=== PATIENT | female | born 1980 | race American Indian/Alaskan Native ===

== ENCOUNTER 2017-01-07 02:47 | Emergency (ER) | payer MEDICAID ==
[2017-01-07 03:57] LABS: Basophils % (Auto) 0.5 % (0.0-1.8); Eosinophils % (Auto) 2.9 % (0.0-4.3); Hematocrit 28.7 % (30.3-42.9); Hemoglobin 8.8 gm/dl (10.1-14.3); Mean Corpuscular HGB Conc 31 % (30-34); Platelet Count 406 K/mm3 (140-440); Red Blood Count 4.53 M/mm3 (3.65-5.03); Red Cell Distribution Width 18.5 % (13.2-15.2); White Blood Count 12.2 K/mm3 (4.5-11.0)
[2017-01-07 04:17] LABS: Anion Gap 18 mmol/L; BUN/Creatinine Ratio 15.71; Blood Urea Nitrogen 11 mg/dL (7-17); Calcium 8.5 mg/dL (8.4-10.2); Carbon Dioxide 27 mmol/L (22-30); Chloride 94.1 mmol/L (98-107); Glucose 130 mg/dL (65-100); Potassium 3.6 mmol/L (3.6-5.0); Sodium 135 mmol/L (137-145)
[2017-01-07 04:27] LABS: Mean Corpuscular Hemoglobin 19 pg (28-32); Mean Corpuscular Volume 64 fl (79-97)
--- NOTE | 2017-01-07 05:23 | Cat Scan Report ---
FINAL REPORT PROCEDURE: CT HEAD/BRAIN WO CON TECHNIQUE: Computerized tomography of the head was performed without contrast material. HISTORY: HEADACHE COMPARISON: No prior studies are available for comparison. FINDINGS: Skull and scalp: Normal. Paranasal sinuses: Normal. Ventricles and subarachnoid spaces: Normal. Cerebrum: No evidence of hemorrhage, acute infarction or mass . Cerebellum and brainstem: No evidence of hemorrhage, acute infarction or mass. Vasculature: Normal. Comments: None. IMPRESSION: There is no evidence of an acute intracranial process
[2017-01-07] MEDS ORDERED: TYLENOL PO ONE (05:58)
[2017-01-07] MEDS ORDERED: TYLENOL ONE (05:58)
[2017-01-07] MEDS ORDERED: FIORICET PO ONE (10:50)
[2017-01-07] MEDS ORDERED: ZOFRAN IM ONE (10:50)
[2017-01-07] MEDS ORDERED: MORPHINE IM ONE (10:50)
--- NOTE | 2017-01-07 10:55 | Emergency Department Report ---
HPI - General Chief Complaint: Headache Time Seen by Provider: 01/07/17 10:30 - HPI HPI: Room 6 The patient is a 36-year-old female presenting with a chief complaint of headache. Patient states for 5 days ago she began "feeling bad at work" which includes nausea and vomiting. Patient states she went to an urgent care facility and was diagnosed with UTI and a "stomach large." Patient states she was given medications including antibiotics but cannot recall the names. The patient states last night she developed headache dizziness and blurred vision which was intermittent. Gives her pain a score of 10/10. Location: [see above] Duration: [see above] Quality: Headache Severity: 10/10 Modifying factors: [see above] Context: [see above] Mode of transportation: [not driving] ED Past Medical Hx - Past Medical History Hx Asthma: Yes - Surgical History Past Surgical History?: Yes Additional Surgical History: csection tubal ligation - Family History Family history: no significant - Social History Smoking Status: Never Smoker Substance Use Type: None - Medications Home Medications: Home Medications Medication Instructions Recorded Confirmed Last Taken Type Ibuprofen [Motrin] 800 mg PO Q8H PRN #14 tablet 09/14/13 Unknown Rx Azithromycin [Zithromax TAB] 500 mg PO QDAY #3 tablet 05/05/14 Unknown Rx Benzonatate [Tessalon Perles] 100 mg PO Q8HR #30 capsule 05/05/14 Unknown Rx Ondansetron [Zofran Odt] 4 mg PO Q6H #10 tab.rapdis 05/05/14 Unknown Rx Prednisone [Prednisone 10 mg 10 mg PO .TAPER #1 tab.ds.pk 05/05/14 Unknown Rx (6-Day Pack, 21 Tabs)] Promethazine /Codeine 5 ml PO Q6H PRN #120 ml 05/05/14 Unknown Rx [Phenergan/Codeine 6.25-10 mg/5 ml] HYDROcodone/APAP 5-325 [[place] 1 each PO Q6HR PRN #20 tablet 08/19/15 Unknown Rx 5/325] Ibuprofen [Motrin] 800 mg PO Q8HR PRN #30 tablet 08/19/15 Unknown Rx Promethazine [Phenergan TAB] 25 mg PO Q6HR PRN #20 tab 01/07/17 Unknown Rx Promethazine [Phenergan] 25 mg [place] Q6HR PRN #5 supp.rect 01/07/17 Unknown Rx ED Review of Systems ROS: Stated complaint: HEADACHES Other details as noted in HPI Comment: All other systems reviewed and negative Constitutional: denies: chills Eyes: denies: eye pain, eye discharge, vision change ENT: denies: ear pain, throat pain Respiratory: denies: cough, shortness of breath, wheezing Cardiovascular: denies: chest pain, palpitations Endocrine: no symptoms reported Gastrointestinal: nausea, vomiting Genitourinary: denies: urgency, dysuria, discharge Musculoskeletal: denies: back pain, joint swelling, arthralgia Skin: denies: rash, lesions Neurological: headache Psychiatric: denies: anxiety, depression Hematological/Lymphatic: denies: easy bleeding, easy bruising Physical Exam - Physical Exam Vital Signs: Vital Signs 01/07/17 01/07/17 01/07/17 03:22 05:53 09:37 Temperature 98.7 F 98.5 F 98 F Pulse Rate 88 82 70 Respiratory 18 18 18 Rate Blood Pressure 158/101 134/93 Blood Pressure 134/75 [Left] O2 Sat by Pulse 99 100 100 Oximetry Physical Exam: GENERAL: The patient is well-developed well-nourished female lying on stretcher not appearing to be in acute distress. [] HEENT: Normocephalic. Atraumatic. Extraocular motions are intact. Patient has moist mucous membranes. NECK: Supple. No meningitic signs are noted. No nuchal rigidity CHEST/LUNGS: Clear to auscultation. There is no respiratory distress noted. HEART/CARDIOVASCULAR: Regular. There is no tachycardia. There is no gallop rub or murmur. ABDOMEN: Abdomen is soft, nontender. Patient has normal bowel sounds. There is no abdominal distention. SKIN: There is no rash. There is no edema. There is no diaphoresis. NEURO: The patient is awake, alert, and oriented. The patient is cooperative. The patient has no focal neurologic deficits. The patient has normal speech. Cranial nerves II through XII grossly intact, no drift MUSCULOSKELETAL: T There is no evidence of acute injury. ED Course Vital Signs 01/07/17 01/07/17 01/07/17 03:22 05:53 09:37 Temperature 98.7 F 98.5 F 98 F Pulse Rate 88 82 70 Respiratory 18 18 18 Rate Blood Pressure 158/101 134/93 Blood Pressure 134/75 [Left] O2 Sat by Pulse 99 100 100 Oximetry ED Medical Decision Making - Lab Data Result diagrams: 01/07/17 03:43 01/07/17 03:43 Laboratory Tests 01/07/17 01/07/17 01/07/17 03:43 03:43 03:43 WBC 12.2 H RBC 4.53 Hgb 8.8 L Hct 28.7 L MCV 64 L MCH 19 L MCHC 31 RDW 18.5 H Plt Count 406 Lymph % (Auto) 30.7 [place] % (Auto) 6.7 Eos % (Auto) 2.9 Baso % (Auto) 0.5 Lymph # 3.8 [place] # 0.8 Eos # 0.4 Baso # 0.1 Seg Neutrophils % 59.2 Seg Neutrophils # 7.2 Sodium 135 L Potassium 3.6 Chloride 94.1 L Carbon Dioxide 27 Anion Gap 18 BUN 11 Creatinine 0.7 Estimated GFR > 60 BUN/Creatinine Ratio 15.71 Glucose 130 H Calcium 8.5 HCG, Qual Negative Urine Color Urine Turbidity Urine pH Ur Specific Sandy Urine Protein Urine Glucose (UA) Urine Ketones Urine Blood Urine Nitrite Urine Bilirubin Urine Urobilinogen Ur Leukocyte Esterase Urine WBC (Auto) Urine RBC (Auto) U Epithel Cells (Auto) Urine Bacteria (Auto) 01/07/17 11:21 WBC RBC Hgb Hct MCV MCH MCHC RDW Plt Count Lymph % (Auto) [place] % (Auto) Eos % (Auto) Baso % (Auto) Lymph # [place] # Eos # Baso # Seg Neutrophils % Seg Neutrophils # Sodium Potassium Chloride Carbon Dioxide Anion Gap BUN Creatinine Estimated GFR BUN/Creatinine Ratio Glucose Calcium HCG, Qual Urine Color Straw Urine Turbidity Cloudy Urine pH 6.0 Ur Specific Sandy 1.004 Urine Protein <15 mg/dl Urine Glucose (UA) Neg Urine Ketones Neg Urine Blood Sm Urine Nitrite Neg Urine Bilirubin Neg Urine Urobilinogen < 2.0 Ur Leukocyte Esterase Lg Urine WBC (Auto) 24.0 H Urine RBC (Auto) 23.0 U Epithel Cells (Auto) 11.0 Urine Bacteria (Auto) 1+ - Radiology Data Radiology results: report reviewed (CT head), image reviewed (CT head) CT head (read by radiologist)-there is no evidence of an acute intracranial process - Medical Decision Making Patient is in the middle of taking a course of ciprofloxacin patient advised to complete her course of antibiotics - Differential Diagnosis UTI, gastroenteritis, headache, migraine, intracranial mass Critical care attestation.: If time is entered above; I have spent that time in minutes in the direct care of this critically ill patient, excluding procedure time. ED Disposition Clinical Impression: Headache, UTI (urinary tract infection) Disposition: TO HOME OR SELFCARE Is pt being admited?: No Does the pt Need Aspirin: No Condition: Stable Instructions: Urinary Tract Infection in Women (ED), Acute Headache (ED) Additional Instructions: Return to the emergency department immediately should you develop worsening symptoms, fever, inability to tolerate food or liquid or any other concerns. Prescriptions: Promethazine [Phenergan TAB] 25 mg PO Q6HR PRN #20 tab PRN Reason: Nausea Promethazine [Phenergan] 25 mg [place] Q6HR PRN #5 supp.rect PRN Reason: Vomiting Referrals: ZABRINA ESPINAL MD [Staff Physician] - 3-[address] [facility] [Outside] - 3-5 Days Time of Disposition: 12:31
[2017-01-07 11:55] LABS: Bacteria,Urine 1+ /HPF (Negative); Bilirubin,Urine NEG (Negative); Blood,Urine SM (Negative); Ketones,Urine NEG (Negative); Leukocyte Esterase,Urine LG (Negative); Nitrite,Urine NEG (Negative); Protein,Urine <15 mg/dL mg/dL (Negative); Urobilinogen,Urine < 2.0 mg/dL (<2.0)
[2017-01-07 13:26] VITALS: BP 134/62
== END 2017-01-07 13:10 | disposition home or self-care (01) ==
LOC: ED 02:47
DX: N39.0 Urinary tract infection, site not specified (principal); R51 Headache; J45.909 Unspecified asthma, uncomplicated
CPT/HCPCS: 36415; 70450; 80048; 81001; 84703; 85025; 96372; 99284; J2270; J2405

== ENCOUNTER 2017-01-13 20:53 | Emergency (ER) | payer MEDICAID ==
[2017-01-13] MEDS ORDERED: ZOFRAN IV ONE (21:16)
[2017-01-13] MEDS ORDERED: MORPHINE IV ONE (21:16)
--- NOTE | 2017-01-13 21:25 | Emergency Department Report ---
ED Chest Pain HPI - General Chief Complaint: Chest Pain Stated Complaint: CHEST PAIN Time Seen by Provider: 01/13/17 21:08 Source: patient, EMS - History of Present Illness Initial Comments: 36 years old female coming by ambulance as her main complaint of chest pain, pressure-like left-sided started today while she was working at [employer] [facility] and did not have any similar pain before. Her shortness of breath no nausea no vomiting. Patient did receive 325 mg of aspirin by ambulance and also nitroglycerin. MD Complaint: chest pain -: This afternoon Pain Location: left chest Quality: pressure Other Symptoms: cough. denies: fever Treatments Prior to Arrival: aspirin, nitroglycerin - Related Data Previous Rx's Medication Instructions Recorded Last Taken Type Promethazine /Codeine 5 ml PO Q6H PRN #120 ml 05/05/14 Unknown Rx [Phenergan/Codeine 6.25-10 mg/5 ml] Promethazine [Phenergan TAB] 25 mg PO Q6HR PRN #20 tab 01/07/17 Unknown Rx Promethazine [Phenergan] 25 mg [place] Q6HR PRN #5 supp.rect 01/07/17 Unknown Rx Amoxicillin [Amoxicillin TAB] 875 mg PO BID #14 tablet 01/14/17 Unknown Rx Ketorolac [Toradol] 10 mg PO Q6H PRN #20 tablet 01/14/17 Unknown Rx P-Ephed HCl/Codeine/Guaifen 10 ml PO Q4H PRN #100 ml 01/14/17 Unknown Rx [Cheratussin DAC 30-10-100 mg/5 ml] Allergies Allergy/AdvReac Type Severity Reaction Status Date / Time oatmeal Allergy Hives Uncoded 09/14/13 06:49 Heart Score - HEART Score History: Moderately suspicious EKG: Non-specific Age: < 45 Risk factors: 1-2 risk factors Troponin: < normal limit HEART Score: 3 - Critical Actions Critical Actions: 0-3 pts:0.9-1.7%risk of adverse cardiac event.Candidate for discharge ED Review of Systems ROS: Stated complaint: CHEST PAIN Other details as noted in HPI Comment: All other systems reviewed and negative Constitutional: denies: chills, fever Respiratory: cough. denies: shortness of breath, SOB with exertion Cardiovascular: chest pain. denies: palpitations Gastrointestinal: denies: abdominal pain, nausea, vomiting, diarrhea Skin: denies: rash Neurological: denies: headache, weakness, numbness, paresthesias, confusion ED Past Medical Hx - Past Medical History Hx Asthma: Yes - Surgical History Additional Surgical History: csection tubal ligation - Social History Smoking Status: Never Smoker Substance Use Type: None - Medications Home Medications: Home Medications Medication Instructions Recorded Confirmed Last Taken Type Promethazine /Codeine 5 ml PO Q6H PRN #120 ml 05/05/14 01/13/17 Unknown Rx [Phenergan/Codeine 6.25-10 mg/5 ml] Promethazine [Phenergan TAB] 25 mg PO Q6HR PRN #20 tab 01/07/17 01/13/17 Unknown Rx Promethazine [Phenergan] 25 mg [place] Q6HR PRN #5 supp.rect 01/07/17 01/13/17 Unknown Rx Amoxicillin [Amoxicillin TAB] 875 mg PO BID #14 tablet 01/14/17 Unknown Rx Ketorolac [Toradol] 10 mg PO Q6H PRN #20 tablet 01/14/17 Unknown Rx P-Ephed HCl/Codeine/Guaifen 10 ml PO Q4H PRN #100 ml 01/14/17 Unknown Rx [Cheratussin DAC 30-10-100 mg/5 ml] ED Physical Exam - General Limitations: No Limitations General appearance: alert, in no apparent distress - Head Head exam: Present: atraumatic - Eye Eye exam: Present: normal appearance - ENT ENT exam: Present: normal exam - Neck Neck exam: Present: normal inspection, full ROM. Absent: tenderness, meningismus - Respiratory Respiratory exam: Present: normal lung sounds bilaterally. Absent: respiratory distress, wheezes, rales, rhonchi, stridor, chest wall tenderness, accessory muscle use, decreased breath sounds, prolonged expiratory - Cardiovascular Cardiovascular Exam: Present: regular rate, normal rhythm, normal heart sounds - GI/Abdominal GI/Abdominal exam: Present: soft. Absent: distended, tenderness, guarding - Neurological Exam Neurological exam: Present: alert, oriented X3, CN II-XII intact - Skin Skin exam: Present: warm, intact ED Course Vital Signs 01/13/17 01/13/17 01/13/17 21:15 21:45 23:05 Temperature 98.8 F Pulse Rate 110 H 70 Respiratory 20 16 18 Rate Blood Pressure 137/79 Blood Pressure 135/74 [Left] O2 Sat by Pulse 97 100 99 Oximetry - Reevaluation(s) Reevaluation #1: 01/14/17 00:47 Patient stated that she is feeling much better just then is gone. CTA test came back negative no PE no pneumonia. Chest and is very atypical I believe this is bronchitis given the cough and the character of the pain. We will discharge with antibiotic and pain medicine to follow-up with her primary care physician. ED Medical Decision Making - Lab Data Result diagrams: 01/13/17 21:22 01/13/17 21:22 Critical care attestation.: If time is entered above; I have spent that time in minutes in the direct care of this critically ill patient, excluding procedure time. ED Disposition Clinical Impression: Chest pain, Acute bronchitis Disposition: DC-01 TO HOME OR SELFCARE Is pt being admited?: No Condition: Stable Instructions: Chest Pain (ED), Acute Bronchitis (ED) Referrals: PRIMARY CARE, [Primary Care Provider] - 3-5 Days
[2017-01-13 21:54] LABS: Basophils % (Auto) 0.2 % (0.0-1.8); Eosinophils % (Auto) 1.2 % (0.0-4.3); Hematocrit 26.9 % (30.3-42.9); Hemoglobin 8.1 gm/dl (10.1-14.3); Mean Corpuscular HGB Conc 30 % (30-34); Platelet Count 335 K/mm3 (140-440); Red Blood Count 4.14 M/mm3 (3.65-5.03); Red Cell Distribution Width 19.4 % (13.2-15.2); White Blood Count 11.8 K/mm3 (4.5-11.0)
[2017-01-13 21:59] LABS: Mean Corpuscular Hemoglobin 20 pg (28-32); Mean Corpuscular Volume 65 fl (79-97)
[2017-01-13 22:07] LABS: Alanine Aminotransferase 13 units/L (7-56); Albumin 3.4 g/dL (3.9-5); Alkaline Phosphatase 87 units/L (35-129); Anion Gap 18 mmol/L; BUN/Creatinine Ratio 7.14; Blood Urea Nitrogen 5 mg/dL (7-17); Carbon Dioxide 22 mmol/L (22-30); Chloride 100.9 mmol/L (98-107); Glucose 96 mg/dL (65-100); Lipase 22 units/L (13-60); Potassium 3.8 mmol/L (3.6-5.0); Sodium 137 mmol/L (137-145); Total Protein 6.8 g/dL (6.3-8.2)
[2017-01-13 23:09] VITALS: BP 135/74
[2017-01-13] MEDS ORDERED: NACL ONE (23:16)
--- NOTE | 2017-01-13 23:57 | Cat Scan Report ---
FINAL REPORT PROCEDURE: CT ANGIO CHEST TECHNIQUE: Computerized tomographic angiography of the chest was performed after the IV injection of iodinated nonionic contrast including image processing. The image data was postprocessed using 2-dimensional multiplanar reformatted (MPR) and 3-dimensional (MIP and/or volume rendered) techniques. HISTORY: CHEST PAIN WITH SYNCOPE COMPARISON: No prior studies are available for comparison. FINDINGS: Heart and pericardium: Normal. Thoracic aorta: Normal. Pulmonary vasculature: Normal. Lymph nodes: No enlarged thoracic lymph nodes. Lungs: Normal. Pleural space: No effusion, thickening, or pneumothorax. Musculoskeletal structures: No significant abnormality. Upper abdominal structures: No significant abnormality. IMPRESSION: Normal Examination
--- NOTE | 2017-01-14 09:40 | XRay Report ---
AP CHEST: HISTORY: chest pain AP view of the chest demonstrates a normal mediastinal and cardiac contour with clear lungs and normal bony and soft tissue structures. IMPRESSION: No acute cardiopulmonary process appreciated.
== END 2017-01-14 01:10 | disposition home or self-care (01) ==
LOC: ED 20:53
DX: J20.9 Acute bronchitis, unspecified (principal); R07.89 Other chest pain; J45.909 Unspecified asthma, uncomplicated; Z91.018 Allergy to other foods
CPT/HCPCS: 36415; 71010; 71275; 80053; 83690; 84484; 84703; 85025; 85379; 93005; 93010; 96374; 96375; 99285; J2270; J2405; Q9967

== ENCOUNTER 2017-02-17 00:13 | Emergency (ER) | payer MEDICAID ==
[2017-02-17] MEDS ORDERED: TORADOL IM ONE (02:52)
--- NOTE | 2017-02-17 02:57 | Emergency Department Report ---
ED Lower Extremity HPI - General Chief Complaint: Extremity Problem,Nontraumatic Stated Complaint: LT KNEE PAIN Time Seen by Provider: 02/17/17 02:50 Source: patient Mode of arrival: Ambulatory Limitations: No Limitations - History of Present Illness Initial Comments: Pt is a 37 y/o aaf with hx of Asthma , HTN, Obesity, and chronic Left knee pain s/p twisting injury 2 years ago pt endorse pain flares 3-4 times per year, pt is described as 5/10 aching to anterior medial left knee radiating to left tibia pt denies new fall injury or trauma. pt states subjective swelling, rom remains intact pt remains ambulatory to baseline, pain is exacerbated by prolonged standing pain is relieved by rest and elevation, pt has not seen ortho for follow up over the past 2 years. MD Complaint: knee injury Onset/Timin -: year(s) Injury: Knee: Left (anterior medial knee ) Place: street/outdoors Severity: moderate Severity scale (0 -10): 5 Improves With: rest Worsens With: weight bearing, movement, palpation Context: other (twisted 2 yrs ago intermittent pain since ) Associated Symptoms: swelling, ambulatory. denies: numbness, tingling - Related Data Previous Rx's Medication Instructions Recorded Last Taken Type Promethazine /Codeine 5 ml PO Q6H PRN #120 ml 05/05/14 Unknown Rx [Phenergan/Codeine 6.25-10 mg/5 ml] Promethazine [Phenergan TAB] 25 mg PO Q6HR PRN #20 tab 01/07/17 Unknown Rx Promethazine [Phenergan] 25 mg [place] Q6HR PRN #5 supp.rect 01/07/17 Unknown Rx Amoxicillin [Amoxicillin TAB] 875 mg PO BID #14 tablet 01/14/17 Unknown Rx Ketorolac [Toradol] 10 mg PO Q6H PRN #20 tablet 01/14/17 Unknown Rx P-Ephed HCl/Codeine/Guaifen 10 ml PO Q4H PRN #100 ml 01/14/17 Unknown Rx [Cheratussin DAC 30-10-100 mg/5 ml] Cyclobenzaprine [Flexeril] 10 mg PO TID PRN #30 tablet 02/17/17 Unknown Rx Diclofenac Sodium [Voltaren] 100 gm TP BID PRN #1 tube 02/17/17 Unknown Rx Naproxen [Naprosyn TAB] 500 mg PO BID PRN #30 tablet 02/17/17 Unknown Rx Allergies Allergy/AdvReac Type Severity Reaction Status Date / Time oatmeal Allergy Hives Uncoded 09/14/13 06:49 ED Review of Systems ROS: Stated complaint: LT KNEE PAIN Other details as noted in HPI Constitutional: denies: chills, fever Eyes: denies: eye pain, eye discharge, vision change ENT: denies: ear pain, throat pain Respiratory: denies: cough, shortness of breath, wheezing Cardiovascular: denies: chest pain, palpitations, dyspnea on exertion, edema, syncope, paroxysmal nocturnal dyspnea Endocrine: no symptoms reported Gastrointestinal: denies: abdominal pain, nausea, diarrhea Genitourinary: denies: urgency, dysuria, discharge Musculoskeletal: arthralgia, myalgia Skin: denies: rash, lesions Neurological: denies: headache, weakness, paresthesias Psychiatric: denies: anxiety, depression Hematological/Lymphatic: denies: easy bleeding, easy bruising ED Past Medical Hx - Past Medical History Previous Medical History?: Yes Hx Hypertension: Yes Hx Asthma: Yes - Surgical History Past Surgical History?: Yes Additional Surgical History: csection tubal ligation - Social History Smoking Status: Never Smoker Substance Use Type: None - Medications Home Medications: Home Medications Medication Instructions Recorded Confirmed Last Taken Type Promethazine /Codeine 5 ml PO Q6H PRN #120 ml 05/05/14 01/13/17 Unknown Rx [Phenergan/Codeine 6.25-10 mg/5 ml] Promethazine [Phenergan TAB] 25 mg PO Q6HR PRN #20 tab 01/07/17 01/13/17 Unknown Rx Promethazine [Phenergan] 25 mg [place] Q6HR PRN #5 supp.rect 01/07/17 01/13/17 Unknown Rx Amoxicillin [Amoxicillin TAB] 875 mg PO BID #14 tablet 01/14/17 Unknown Rx Ketorolac [Toradol] 10 mg PO Q6H PRN #20 tablet 01/14/17 Unknown Rx P-Ephed HCl/Codeine/Guaifen 10 ml PO Q4H PRN #100 ml 01/14/17 Unknown Rx [Cheratussin DAC 30-10-100 mg/5 ml] Cyclobenzaprine [Flexeril] 10 mg PO TID PRN #30 tablet 02/17/17 Unknown Rx Diclofenac Sodium [Voltaren] 100 gm TP BID PRN #1 tube 02/17/17 Unknown Rx Naproxen [Naprosyn TAB] 500 mg PO BID PRN #30 tablet 02/17/17 Unknown Rx ED Physical Exam - General Limitations: No Limitations General appearance: alert, in no apparent distress - Head Head exam: Present: atraumatic, normocephalic - Eye Eye exam: Present: normal appearance, PERRL, EOMI Pupils: Present: normal accommodation - ENT ENT exam: Present: mucous membranes moist - Neck Neck exam: Present: normal inspection, tenderness, full ROM. Absent: lymphadenopathy, thyromegaly - Respiratory Respiratory exam: Present: normal lung sounds bilaterally, chest wall tenderness. Absent: respiratory distress - Cardiovascular Cardiovascular Exam: Present: regular rate, normal rhythm. Absent: systolic murmur, diastolic murmur, rubs, gallop - GI/Abdominal GI/Abdominal exam: Present: soft, normal bowel sounds - Rectal Rectal exam: Present: deferred - Extremities Exam Extremities exam: Present: normal inspection, full ROM, tenderness (left medial anterior knee pain to palpation), normal capillary refill. Absent: pedal edema , joint swelling, calf tenderness - Expanded Lower Extremity Exam Left Hip exam: Present: full ROM. Absent: tenderness Upper Leg exam: Present: normal inspection, full ROM. Absent: tenderness Knee exam: Present: normal inspection, full ROM, tenderness, swelling, pain w/ pronation/supination, full knee extension. Absent: abrasion, laceration, ecchymosis, deformity, crepidus, dislocation, erythema, effusion, posterior draw sign, pain/laxity with valgus, pain/laxity with varus Lower Leg exam: Present: normal inspection, full ROM. Absent: tenderness Ankle exam: Present: normal inspection, full ROM. Absent: tenderness Foot/Toe exam: Present: normal inspection, full ROM. Absent: tenderness Neuro vascular tendon exam: Present: no vascular compromise. Absent: pulse deficit, abnormal cap refill, motor deficit, sensory deficit, tendon deficit, extremity cold to touch, pallor, abnormal 2-point discrimination, decreased fine /light touch, foot drop, peroneal nerve deficit, significant pain with passive ROM of distal joint Gait: Positive: observed and normal - Back Exam Back exam: Present: normal inspection, full ROM. Absent: tenderness, CVA tenderness (R), CVA tenderness (L), rash noted - Neurological Exam Neurological exam: Present: alert, oriented X3, CN II-XII intact, normal gait, reflexes normal - Psychiatric Psychiatric exam: Present: normal affect, normal mood - Skin Skin exam: Present: warm, dry, intact, normal color. Absent: rash ED Course Vital Signs 02/17/17 00:17 Temperature 98.1 F Pulse Rate 87 Respiratory 20 Rate O2 Sat by Pulse 100 Oximetry ED Lower Extremity MDM - Medical Decision Making Pt is a 37 y/o aaf with hx of Asthma , HTN, Obesity, and chronic Left knee pain s/p twisting injury 2 years ago pt endorse pain flares 3-4 times per year, pt is described as 5/10 aching to anterior medial left knee radiating to left tibia pt denies new fall injury or trauma. pt states subjective swelling, rom remains intact pt remains ambulatory to baseline, pain is exacerbated by prolonged standing pain is relieved by rest and elevation, pt has not seen ortho for follow up over the past 2 years. exam: pt appears well nontoxic nad , left knee: no deformity no ecchymosis no erythema no fever no drawer, rom intact full extension, pain to rotation there is no weakness no calf tenderness no given that this is a chronic issue with no change in pain location intensity or location in past 2 yrs will tx with nsaids and muscle relaxant and referral to orthopedics upon appointment pt verbalized agreement and understanding with same. Critical care attestation.: If time is entered above; I have spent that time in minutes in the direct care of this critically ill patient, excluding procedure time. ED Disposition Clinical Impression: Chronic pain of left knee Disposition: DC- TO HOME OR SELFCARE Is pt being admited?: No Does the pt Need Aspirin: No Condition: Good Instructions: Knee Exercises (GEN), Knee Pain (ED) Prescriptions: Cyclobenzaprine [Flexeril] 10 mg PO TID PRN #30 tablet PRN Reason: Muscle Spasm Diclofenac Sodium [Voltaren] 100 gm TP BID PRN #1 tube PRN Reason: Pain Naproxen [Naprosyn TAB] 500 mg PO BID PRN #30 tablet PRN Reason: Pain Referrals: PRIMARY CARE, [Primary Care Provider] - 3-5 Days Forms: Work/School Release Form(ED) Time of Disposition: 03:08
== END 2017-02-17 03:25 | disposition home or self-care (01) ==
LOC: ED 00:13
DX: M25.562 Pain in left knee (principal); G89.29 Other chronic pain; I10 Essential (primary) hypertension; J45.909 Unspecified asthma, uncomplicated
CPT/HCPCS: 96372; 99282; J1885

== ENCOUNTER 2017-08-30 14:58 | Emergency (ER) | payer MEDICAID ==
[2017-08-30 15:17] VITALS: BP 168/99
--- NOTE | 2017-08-30 16:46 | XRay Report ---
FINAL REPORT EXAM: XR KNEE 3V LT HISTORY: left knee pain and swelling TECHNIQUE: AP, oblique, and lateral views of the left knee PRIORS: None. FINDINGS: No acute fracture or dislocation is seen. The soft tissues are unremarkable with no evidence for suprapatellar joint effusion. Joint spaces are maintained and bony mineralization is normal. IMPRESSION: Negative views of the left knee.
--- NOTE | 2017-08-30 19:46 | Emergency Department Report ---
ED Extremity Problem HPI - General Chief complaint: Extremity Injury, Lower Stated complaint: KNEE PAIN Time Seen by Provider: 08/30/17 19:37 Source: patient Mode of arrival: Ambulatory Limitations: No Limitations - History of Present Illness Initial comments: 37-year-old obese female comes in complaining of history of left knee pain. Patient reports she had a injury 2 years ago and in the last 2 days her pain is gotten worse. Patient reports his taken no medication she says is worse when she bears weight bear. Patient has taken no pain medication at this time. Patient denies any recent trauma no fever no chills no swelling. She has no past medical history currently takes no medication and has no known drug allergies. MD Complaint: extremity pain -: days(s) (2 worst in last 2 days), year(s) (2) Location: left History of Same: Yes Radiation: proximal, distal Severity scale (0 -10): 9 Quality: aching, sharp Consistency: intermittent Improves with: medication, rest Worsens with: weight bearing, walking Associated Symptoms: denies: chest pain, shortness of breath, fever - Related Data Previous Rx's Medication Instructions Recorded Last Taken Type Promethazine /Codeine 5 ml PO Q6H PRN #120 ml 05/05/14 Unknown Rx [Phenergan/Codeine 6.25-10 mg/5 ml] Promethazine [Phenergan TAB] 25 mg PO Q6HR PRN #20 tab 01/07/17 Unknown Rx Promethazine [Phenergan] 25 mg DE Q6HR PRN #5 supp.rect 01/07/17 Unknown Rx Amoxicillin [Amoxicillin TAB] 875 mg PO BID #14 tablet 01/14/17 Unknown Rx Ketorolac [Toradol] 10 mg PO Q6H PRN #20 tablet 01/14/17 Unknown Rx Pseudoephed/Codeine/Guaifen 10 ml PO Q4H PRN #100 ml 01/14/17 Unknown Rx [Cheratussin DAC 30-10-100 mg/5 ml] Cyclobenzaprine [Flexeril] 10 mg PO TID PRN #30 tablet 02/17/17 Unknown Rx Diclofenac Sodium [Voltaren] 100 gm TP BID PRN #1 tube 02/17/17 Unknown Rx Naproxen [Naprosyn TAB] 500 mg PO BID PRN #30 tablet 08/30/17 Unknown Rx traMADol [Ultram 50 MG tab] 50 mg PO Q6HR PRN #12 tablet 08/30/17 Unknown Rx Allergies Allergy/AdvReac Type Severity Reaction Status Date / Time oatmeal Allergy Hives Uncoded 09/14/13 06:49 ED Review of Systems ROS: Stated complaint: KNEE PAIN Other details as noted in HPI Constitutional: denies: chills, fever Eyes: denies: eye pain, eye discharge, vision change ENT: denies: ear pain, throat pain Respiratory: denies: cough, shortness of breath, wheezing Cardiovascular: denies: chest pain, palpitations Endocrine: no symptoms reported Gastrointestinal: denies: abdominal pain, nausea, diarrhea Genitourinary: denies: urgency, dysuria, discharge Musculoskeletal: arthralgia (left knee). denies: joint swelling Skin: denies: rash, lesions Neurological: denies: headache, weakness, paresthesias Psychiatric: denies: anxiety, depression Hematological/Lymphatic: denies: easy bleeding, easy bruising ED Past Medical Hx - Past Medical History Previous Medical History?: Yes Hx Hypertension: Yes Hx Asthma: Yes Additional medical history: left knee injury - Surgical History Past Surgical History?: Yes Additional Surgical History: csection tubal ligation - Social History Smoking Status: Never Smoker Substance Use Type: Non Opiate Pain - Medications Home Medications: Home Medications Medication Instructions Recorded Confirmed Last Taken Type Promethazine /Codeine 5 ml PO Q6H PRN #120 ml 05/05/14 01/13/17 Unknown Rx [Phenergan/Codeine 6.25-10 mg/5 ml] Promethazine [Phenergan TAB] 25 mg PO Q6HR PRN #20 tab 01/07/17 01/13/17 Unknown Rx Promethazine [Phenergan] 25 mg DE Q6HR PRN #5 supp.rect 01/07/17 01/13/17 Unknown Rx Amoxicillin [Amoxicillin TAB] 875 mg PO BID #14 tablet 01/14/17 Unknown Rx Ketorolac [Toradol] 10 mg PO Q6H PRN #20 tablet 01/14/17 Unknown Rx Pseudoephed/Codeine/Guaifen 10 ml PO Q4H PRN #100 ml 01/14/17 Unknown Rx [Cheratussin DAC 30-10-100 mg/5 ml] Cyclobenzaprine [Flexeril] 10 mg PO TID PRN #30 tablet 02/17/17 Unknown Rx Diclofenac Sodium [Voltaren] 100 gm TP BID PRN #1 tube 02/17/17 Unknown Rx Naproxen [Naprosyn TAB] 500 mg PO BID PRN #30 tablet 08/30/17 Unknown Rx traMADol [Ultram 50 MG tab] 50 mg PO Q6HR PRN #12 tablet 08/30/17 Unknown Rx ED Physical Exam - General Limitations: No Limitations General appearance: alert, in no apparent distress - Head Head exam: Present: atraumatic, normocephalic - Eye Eye exam: Present: normal appearance - ENT ENT exam: Present: mucous membranes moist - Neck Neck exam: Present: normal inspection - Respiratory Respiratory exam: Present: normal lung sounds bilaterally. Absent: respiratory distress - Cardiovascular Cardiovascular Exam: Present: regular rate, normal rhythm. Absent: systolic murmur, diastolic murmur, rubs, gallop - Extremities Exam Extremities exam: Present: normal inspection, full ROM, tenderness. Absent: pedal edema - Back Exam Back exam: Present: normal inspection - Neurological Exam Neurological exam: Present: alert, oriented X3 - Psychiatric Psychiatric exam: Present: normal affect, normal mood - Skin Skin exam: Present: warm, dry, intact, normal color. Absent: rash ED Course Vital Signs 08/30/17 15:13 Temperature 98.2 F Pulse Rate 92 H Respiratory 18 Rate Blood Pressure 168/99 O2 Sat by Pulse 99 Oximetry ED Medical Decision Making - Medical Decision Making MPRESSION: Negative views of the left knee. Transcribed By: [facility] Dictated By: SHERI POE MD Electronically Authenticated By: SHERI POE MD Signed Date/Time: 08/30/17 1641 Critical care attestation.: If time is entered above; I have spent that time in minutes in the direct care of this critically ill patient, excluding procedure time. ED Disposition Clinical Impression: Chronic pain of left knee, Obesity (BMI 30-39.9) Disposition: DC-01 TO HOME OR SELFCARE Is pt being admited?: No Does the pt Need Aspirin: No Condition: Stable Additional Instructions: Take medication as prescribed. If symptoms persist or gets worse please follow up with her primary care provider or orthopedist. Prescriptions: Naproxen [Naprosyn TAB] 500 mg PO BID PRN #30 tablet PRN Reason: Pain traMADol [Ultram 50 MG tab] 50 mg PO Q6HR PRN #12 tablet PRN Reason: Pain Referrals: NEHEMIAS WOLF MD [Primary Care Provider] - 3-5 Days MORIAH MCKEON MD [Staff Physician] - 3-5 Days Forms: Work/School Release Form(ED)
[2017-08-30] MEDS ORDERED: TORADOL IM ONE (19:47)
== END 2017-08-30 20:00 | disposition home or self-care (01) ==
LOC: ED 14:58
DX: M25.562 Pain in left knee (principal); E66.9 Obesity, unspecified; I10 Essential (primary) hypertension; Z68.30 Body mass index [BMI] 30.0-30.9, adult; Z91.018 Allergy to other foods
CPT/HCPCS: 73562; 96372; 99283; J1885

== ENCOUNTER 2017-11-28 03:26 | Emergency (ER) | payer MEDICAID ==
[2017-11-28 03:40] VITALS: BP 143/85
[2017-11-28] MEDS ORDERED: MOTRIN PO ONE (06:04)
--- NOTE | 2017-11-28 06:09 | Emergency Department Report ---
- General Chief Complaint: Upper Respiratory Infection Stated Complaint: BODY PAIN Time Seen by Provider: 11/28/17 06:03 Source: patient Mode of arrival: Ambulatory Limitations: No Limitations - History of Present Illness Initial Comments: 37-year-old -[place] female comes in complaining of body aches, reports back in all lower chest worse with cough. Patient reports that she had a Stewart earlier today. Patient reports that she took Excedrin about midnight but no relief of her body aches. Patient does report of a nonproductive cough and sore throat. Patient admits to headache and sick contact. She denies any nausea vomiting or diarrhea or abdominal pain. MD Complaint: fever, cough, sore throat -: days(s) (1) Severity scale (0 -10): 10 Quality: sharp Consistency: intermittent Improves With: nothing Worsens With: other Context: sick contacts Associated Symptoms: fever (subjective), myalgias, headache, sore throat, chest pain (worst with cough). denies: nausea, vomiting, diarrhea Treatments Prior to Arrival: Acetaminophen (Excerdrin) - Related Data Previous Rx's Medication Instructions Recorded Last Taken Type Promethazine /Codeine 5 ml PO Q6H PRN #120 ml 05/05/14 Unknown Rx [Phenergan/Codeine 6.25-10 mg/5 ml] Promethazine [Phenergan TAB] 25 mg PO Q6HR PRN #20 tab 01/07/17 Unknown Rx Promethazine [Phenergan] 25 mg [place] Q6HR PRN #5 supp.rect 01/07/17 Unknown Rx Amoxicillin [Amoxicillin TAB] 875 mg PO BID #14 tablet 01/14/17 Unknown Rx Ketorolac [Toradol] 10 mg PO Q6H PRN #20 tablet 01/14/17 Unknown Rx Pseudoephed/Codeine/Guaifen 10 ml PO Q4H PRN #100 ml 01/14/17 Unknown Rx [Cheratussin DAC 30-10-100 mg/5 ml] Cyclobenzaprine [Flexeril] 10 mg PO TID PRN #30 tablet 02/17/17 Unknown Rx Diclofenac Sodium [Voltaren] 100 gm TP BID PRN #1 tube 02/17/17 Unknown Rx traMADol [Ultram 50 MG tab] 50 mg PO Q6HR PRN #12 tablet 08/30/17 Unknown Rx Benzonatate [Tessalon Perles] 100 mg PO Q8HR #21 capsule 11/28/17 Unknown Rx Naproxen [Naprosyn TAB] 500 mg PO BID PRN #30 tablet 11/28/17 Unknown Rx Allergies Allergy/AdvReac Type Severity Reaction Status Date / Time oatmeal Allergy Hives Uncoded 09/14/13 06:49 ED Review of Systems ROS: Stated complaint: BODY PAIN Other details as noted in HPI Constitutional: fever. denies: chills ENT: throat pain Respiratory: cough Cardiovascular: chest pain (with cough) Gastrointestinal: denies: abdominal pain, nausea, diarrhea Genitourinary: denies: urgency, dysuria, discharge Musculoskeletal: back pain (with cough) Skin: denies: rash, lesions Neurological: headache Psychiatric: denies: anxiety, depression Hematological/Lymphatic: denies: easy bleeding, easy bruising ED Past Medical Hx - Past Medical History Previous Medical History?: Yes Hx Hypertension: Yes Hx Asthma: Yes (bronchitis) Additional medical history: left knee injury - Surgical History Past Surgical History?: Yes Additional Surgical History: csection x3. tubal ligation - Social History Smoking Status: Never Smoker Substance Use Type: Alcohol - Medications Home Medications: Home Medications Medication Instructions Recorded Confirmed Last Taken Type Promethazine /Codeine 5 ml PO Q6H PRN #120 ml 05/05/14 01/13/17 Unknown Rx [Phenergan/Codeine 6.25-10 mg/5 ml] Promethazine [Phenergan TAB] 25 mg PO Q6HR PRN #20 tab 01/07/17 01/13/17 Unknown Rx Promethazine [Phenergan] 25 mg LA Q6HR PRN #5 supp.rect 01/07/17 01/13/17 Unknown Rx Amoxicillin [Amoxicillin TAB] 875 mg PO BID #14 tablet 01/14/17 Unknown Rx Ketorolac [Toradol] 10 mg PO Q6H PRN #20 tablet 01/14/17 Unknown Rx Pseudoephed/Codeine/Guaifen 10 ml PO Q4H PRN #100 ml 01/14/17 Unknown Rx [Cheratussin DAC 30-10-100 mg/5 ml] Cyclobenzaprine [Flexeril] 10 mg PO TID PRN #30 tablet 02/17/17 Unknown Rx Diclofenac Sodium [Voltaren] 100 gm TP BID PRN #1 tube 02/17/17 Unknown Rx traMADol [Ultram 50 MG tab] 50 mg PO Q6HR PRN #12 tablet 08/30/17 Unknown Rx Benzonatate [Tessalon Perles] 100 mg PO Q8HR #21 capsule 11/28/17 Unknown Rx Naproxen [Naprosyn TAB] 500 mg PO BID PRN #30 tablet 11/28/17 Unknown Rx ED Physical Exam - General Limitations: No Limitations - ENT ENT exam: Present: mucous membranes moist, TM's normal bilaterally - Expanded ENT Exam Expanded Mouth exam: Absent: drooling, trismus, muffled voice Throat exam: Positive: tonsillomegaly. Negative: tonsillar erythema, tonsillar exudate - Neck Neck exam: Present: full ROM. Absent: lymphadenopathy - Respiratory Respiratory exam: Present: normal lung sounds bilaterally. Absent: respiratory distress - Cardiovascular Cardiovascular Exam: Present: tachycardia - Neurological Exam Neurological exam: Present: alert, oriented X3, normal gait - Psychiatric Psychiatric exam: Present: normal affect, normal mood - Skin Skin exam: Present: warm, dry, intact, normal color. Absent: rash ED Course Vital Signs 11/28/17 03:33 Temperature 99.0 F Pulse Rate 93 H Respiratory 18 Rate Blood Pressure 143/85 O2 Sat by Pulse 96 Oximetry ED Medical Decision Making - Radiology Data Radiology results: report reviewed, image reviewed FINAL REPORT PROCEDURE: XR CHEST ROUTINE 2V TECHNIQUE: PA and lateral chest radiographs were obtained. CPT 42340 HISTORY: cough with fever cp with cough COMPARISON: No prior studies are available for comparison. FINDINGS: Heart: Normal. Mediastinum/Vessels: Normal. Lungs/Pleural space: Normal. Bony thorax: No acute osseous abnormality. Other: IMPRESSION: Normal examination. Transcribed By: [facility] Dictated By: KAYLEE SUTHERLAND MD Electronically Authenticated By: KAYLEE SUTHERLAND MD Signed Date/Time: 11/28/17 0659 - Medical Decision Making Patient has been evaluated by this provider in fast track. HCG and urinalysis ordered as well as chest x-ray ibuprofen 800 mg. Critical care attestation.: If time is entered above; I have spent that time in minutes in the direct care of this critically ill patient, excluding procedure time. ED Disposition Clinical Impression: Cough in adult Disposition: DC-01 TO HOME OR SELFCARE Is pt being admited?: No Does the pt Need Aspirin: No Condition: Stable Instructions: Cold Symptoms (ED) Additional Instructions: Please take medication as prescribed. Follow up with your Primary Care provider if symptoms persist or gets worst. Prescriptions: Benzonatate [Tessalon Perles] 100 mg PO Q8HR #21 capsule Naproxen [Naprosyn TAB] 500 mg PO BID PRN #30 tablet PRN Reason: Pain Referrals: PRIMARY CARE, [Primary Care Provider] - 3-5 Days [facility] [Provider Group] - 3-5 Days Forms: Work/School Release Form(ED)
--- NOTE | 2017-11-28 07:04 | XRay Report ---
FINAL REPORT PROCEDURE: XR CHEST ROUTINE 2V TECHNIQUE: PA and lateral chest radiographs were obtained. CPT 04766 HISTORY: cough with fever cp with cough COMPARISON: No prior studies are available for comparison. FINDINGS: Heart: Normal. Mediastinum/Vessels: Normal. Lungs/Pleural space: Normal. Bony thorax: No acute osseous abnormality. Other: IMPRESSION: Normal examination.
[2017-11-28 07:33] LABS: Amorphous Crystals,Urine Few; Bacteria,Urine 1+ /HPF (Negative); Bilirubin,Urine NEG (Negative); Blood,Urine NEG (Negative); Color,Urine Yellow (Yellow); Mucus,Urine 1+ /HPF; Protein,Urine <15 mg/dL mg/dL (Negative); Urobilinogen,Urine < 2.0 mg/dL (<2.0)
[2017-11-28 07:41] LABS: HCG Qualitative,Urine Negative (Negative)
== END 2017-11-28 07:29 | disposition home or self-care (01) ==
LOC: ED 03:26
DX: R05 Cough (principal); I10 Essential (primary) hypertension; J45.909 Unspecified asthma, uncomplicated; Z98.51 Tubal ligation status; Z91.018 Allergy to other foods
CPT/HCPCS: 71046; 81001; 81025

== ENCOUNTER 2018-08-03 23:29 | Emergency (ER) | payer OTHER ==
--- NOTE | 2018-08-04 01:05 | XRay Report ---
PROCEDURE: XR CHEST ROUTINE 2V TECHNIQUE: PA and lateral chest radiographs were obtained. HISTORY: Chest pain COMPARISONS: November 28, 2017. FINDINGS: Heart: The heart is borderline enlarged.. Mediastinum/Vessels: Normal. Lungs/Pleural space: There is suboptimal inspiration. There are no infiltrates, effusions or pneumot horaces.. Bony thorax: No acute osseous abnormality. IMPRESSION: There is no acute cardiopulmonary abnormality. This document is electronically signed by Wander Burns MD., August 04 2018 01:03:12 AM ET
--- NOTE | 2018-08-04 02:20 | Emergency Department Report ---
<JAMEL ORTIZ - Last Filed: 08/04/18 06:20> ED Chest Pain HPI - General Chief Complaint: Dyspnea/Respdistress Stated Complaint: BOLIVAR BODY ACHES Time Seen by Provider: 08/04/18 02:16 Source: patient Mode of arrival: Ambulatory Limitations: No Limitations - History of Present Illness Initial Comments: 38-year-old obese female recently diagnosed with diabetes and hypertension comes in complaining of shortness of breath, chest pain, dizziness and feels like she has to belch. Patient reports that she taken a flu vaccination on 311. Patient is taken nothing for pain. She is followed by [facility] and was recently seen on 07/30/2018 where she was recently diagnosed with these chronic diseases. Patient reports that she was recently started on losartan 50 mg of hydrochlorothiazide 12.5. Patient is not been placed on any hyperglycemic medication. MD Complaint: chest pain -: days(s) (2) Pain Location: substernal Severity scale (0 -10): 9 Quality: tightness, heaviness - Related Data Previous Rx's Medication Instructions Recorded Last Taken Type Famotidine [Pepcid] 40 mg PO DAILY 10 Days #10 tablet 03/06/18 Unknown Rx Ondansetron [Zofran Odt] 4 mg PO Q6H PRN #10 tab.rapdis 03/06/18 Unknown Rx Naproxen [Naprosyn] 500 mg PO BID PRN #20 tablet 08/04/18 Unknown Rx Allergies Allergy/AdvReac Type Severity Reaction Status Date / Time oatmeal Allergy Hives Uncoded 09/14/13 06:49 Heart Score - HEART Score History: Slightly suspicious Age: < 45 Risk factors: 1-2 risk factors Troponin: 1-3x normal limit ED Review of Systems Constitutional: chills, malaise, weakness Respiratory: shortness of breath Cardiovascular: chest pain Neurological: other (dizziness) ED Past Medical Hx - Past Medical History Hx Hypertension: Yes Hx Diabetes: Yes Hx Asthma: Yes (bronchitis) Additional medical history: left knee injury, Obesity, Bronchitis - Surgical History Additional Surgical History: x3. tubal ligation - Social History Smoking Status: Never Smoker Substance Use Type: None - Medications Home Medications: Home Medications Medication Instructions Recorded Confirmed Last Taken Type Famotidine [Pepcid] 40 mg PO DAILY 10 Days #10 tablet 03/06/18 Unknown Rx Ondansetron [Zofran Odt] 4 mg PO Q6H PRN #10 tab.rapdis 03/06/18 Unknown Rx Naproxen [Naprosyn] 500 mg PO BID PRN #20 tablet 08/04/18 Unknown Rx ED Physical Exam - General Limitations: No Limitations General appearance: alert, in no apparent distress, obese - Head Head exam: Present: atraumatic, normocephalic - Eye Eye exam: Present: EOMI - ENT ENT exam: Present: mucous membranes moist - Neck Neck exam: Present: normal inspection, full ROM - Respiratory Respiratory exam: Present: normal lung sounds bilaterally - Cardiovascular Cardiovascular Exam: Present: bradycardia - GI/Abdominal GI/Abdominal exam: Present: soft, tenderness, normal bowel sounds. Absent: distended, guarding, rebound - Extremities Exam Extremities exam: Present: tenderness - Back Exam Back exam: Present: tenderness - Neurological Exam Neurological exam: Present: alert, oriented X3 - Psychiatric Psychiatric exam: Present: normal affect, normal mood - Skin Skin exam: Present: warm, dry, intact, normal color. Absent: rash ED Medical Decision Making - Lab Data Result diagrams: 08/04/18 02:41 08/04/18 02:41 - Radiology Data Radiology results: report reviewed No cardiopulmonary abnormalities on chest x-ray ED Disposition Clinical Impression: Ovarian mass, Generalized body aches, Thrombocytopenia URI (upper respiratory infection) Qualifiers: URI type: unspecified URI Qualified Code(s): J06.9 - Acute upper respiratory infection, unspecified Leukocytosis Qualifiers: Leukocytosis type: unspecified Qualified Code(s): D72.829 - Elevated white blood cell count, unspecified Disposition: DC- TO HOME OR SELFCARE Condition: Stable Instructions: Ovarian Cyst (ED) Additional Instructions: Follow up with your [facility] as soon as possible for cystic mass on ovary. Follow up with primary care in the next 2-3 days to discuss elevated platelets and elevated white count and to evaluate you. Take all your medication you already received from prior doctor. Return to the emergency room for any new or worsening symptoms. Prescriptions: Naproxen [Naprosyn] 500 mg PO BID PRN #20 tablet PRN Reason: Pain, Moderate (4-6) Referrals: GAVIN LIMESTONE SAMIA JASSO MD [Primary Care Provider] - 2-3 Days Forms: Work/School Release Form(ED) Print Language: SINHALA <IAM RUSHING - Last Filed: 08/04/18 19:18> Heart Score - HEART Score History: Slightly suspicious EKG: Non-specific Age: < 45 Risk factors: 1-2 risk factors Troponin: < normal limit HEART Score: 2 ED Review of Systems ROS: Stated complaint: BOLIVAR BODY ACHES Other details as noted in HPI ED Course Vital Signs 08/03/18 08/04/18 08/04/18 23:36 05:56 05:58 Temperature 97.8 F 98.9 F Pulse Rate 89 94 H Respiratory 20 18 18 Rate Blood Pressure 114/64 Blood Pressure 145/86 [Left] O2 Sat by Pulse 98 100 Oximetry 08/04/18 13:22 Temperature 98.1 F Pulse Rate 83 Respiratory 16 Rate Blood Pressure Blood Pressure 107/60 [Left] O2 Sat by Pulse 100 Oximetry ROQUE score - Roque Score Age > 65: (0) No Aspirin use within the Past 7 Days: (0) No 3 or more CAD Risk Factors: (0) No 2 or more Angina events in past 24 hrs: (0) No Known CAD with more than 50% Stenosis: (0) No Elevated Cardiac Markers: (0) No ST Deviation Greater than 0.5mm: (0) No ROQUE Score: 0 ED Medical Decision Making - Lab Data Result diagrams: 08/04/18 02:41 08/04/18 02:41 Laboratory Results - last 24 hr 08/04/18 08/04/18 08/04/18 00:13 02:41 02:41 WBC 19.6 H RBC 4.71 Hgb 9.1 L Hct 29.2 L MCV 62 L MCH 19 L MCHC 31 RDW 19.0 H Plt Count 446 H Lymph # Flow Coordinator Add Manual Diff Complete Total Counted 100 Seg Neuts % (Manual) 66.0 Band Neutrophils % 0 Lymphocytes % (Manual) 28.0 Reactive Lymphs % (Man) 2.0 Monocytes % (Manual) 3.0 Eosinophils % (Manual) 1.0 Basophils % (Manual) 0 Metamyelocytes % 0 Myelocytes % 0 Promyelocytes % 0 Blast Cells % 0 Nucleated RBC % Not Reportable Seg Neutrophils # Man 12.9 H Band Neutrophils # 0.0 Lymphocytes # (Manual) 5.5 H Abs React Lymphs (Man) 0.4 Monocytes # (Manual) 0.6 Eosinophils # (Manual) 0.2 Basophils # (Manual) 0.0 Metamyelocytes # 0.0 Myelocytes # 0.0 Promyelocytes # 0.0 Blast Cells # 0.0 WBC Morphology Not Reportable Hypersegmented Neuts Not Reportable Hyposegmented Neuts Not Reportable Hypogranular Neuts Not Reportable Smudge Cells Not Reportable Toxic Granulation Not Reportable Toxic Vacuolation Not Reportable Dohle Bodies Not Reportable Pelger-Huet Anomaly Not Reportable Markus Rods Not Reportable Platelet Estimate Consistent w auto Clumped Platelets Not Reportable Plt Clumps, EDTA Not Reportable Large Platelets Not Reportable Giant Platelets Not Reportable Platelet Satelliting Not Reportable Plt Morphology Comment Not Reportable RBC Morphology Not Reportable Dimorphic RBCs Not Reportable Polychromasia Not Reportable Hypochromasia 2+ Poikilocytosis Not Reportable Anisocytosis Not Reportable Microcytosis 2+ Macrocytosis Not Reportable Spherocytes Not Reportable Pappenheimer Bodies Not Reportable Sickle Cells Not Reportable Target Cells Not Reportable Tear Drop Cells Not Reportable Ovalocytes 1+ Helmet Cells Not Reportable Garza-[place] Bodies Not Reportable [place] Rings Not Reportable Willie Cells Not Reportable Bite Cells Not Reportable Crenated Cell Not Reportable Elliptocytes 1+ Acanthocytes (Spur) Not Reportable Rouleaux Not Reportable Hemoglobin C Crystals Not Reportable Schistocytes Not Reportable Malaria parasites Not Reportable Jaime Bodies Not Reportable Hem Pathologist Commnt No PT 12.5 INR 0.88 APTT 24.0 L D-Dimer 181.40 Sodium Potassium Chloride Carbon Dioxide Anion Gap BUN Creatinine Estimated GFR BUN/Creatinine Ratio Glucose POC Glucose 128 H Lactic Acid Calcium Total Bilirubin AST ALT Alkaline Phosphatase Troponin T Total Protein Albumin Albumin/Globulin Ratio Urine Color Urine Turbidity Urine pH Ur Specific [place] Urine Protein Urine Glucose (UA) Urine Ketones Urine Blood Urine Nitrite Urine Bilirubin Urine Urobilinogen Ur Leukocyte Esterase Urine WBC (Auto) Urine RBC (Auto) U Epithel Cells (Auto) Urine Mucus 08/04/18 08/04/18 08/04/18 02:41 05:54 05:58 WBC RBC Hgb Hct MCV MCH MCHC RDW Plt Count Lymph # Add Manual Diff Total Counted Seg Neuts % (Manual) Band Neutrophils % Lymphocytes % (Manual) Reactive Lymphs % (Man) Monocytes % (Manual) Eosinophils % (Manual) Basophils % (Manual) Metamyelocytes % Myelocytes % Promyelocytes % Blast Cells % Nucleated RBC % Seg Neutrophils # Man Band Neutrophils # Lymphocytes # (Manual) Abs React Lymphs (Man) Monocytes # (Manual) Eosinophils # (Manual) Basophils # (Manual) Metamyelocytes # Myelocytes # Promyelocytes # Blast Cells # WBC Morphology Hypersegmented Neuts Hyposegmented Neuts Hypogranular Neuts Smudge Cells Toxic Granulation Toxic Vacuolation Dohle Bodies Pelger-Huet Anomaly Markus Rods Platelet Estimate Clumped Platelets Plt Clumps, EDTA Large Platelets Giant Platelets Platelet Satelliting Plt Morphology Comment RBC Morphology Dimorphic RBCs Polychromasia Hypochromasia Poikilocytosis Anisocytosis Microcytosis Macrocytosis Spherocytes Pappenheimer Bodies Sickle Cells Target Cells Tear Drop Cells Ovalocytes Helmet Cells Garza-[place] Bodies [place] Rings Willie Cells Bite Cells Crenated Cell Elliptocytes Acanthocytes (Spur) Rouleaux Hemoglobin C Crystals Schistocytes Malaria parasites Jaime Bodies Hem Pathologist Commnt PT INR APTT D-Dimer Sodium 134 L Potassium 3.5 L Chloride 94.0 L Carbon Dioxide 25 Anion Gap 19 BUN 22 H Creatinine 0.8 Estimated GFR > 60 BUN/Creatinine Ratio 28 Glucose 111 H POC Glucose Lactic Acid 1.20 Calcium 8.3 L Total Bilirubin 0.20 AST 20 ALT 12 Alkaline Phosphatase 102 Troponin T < 0.010 < 0.010 Total Protein 7.0 Albumin 3.7 L Albumin/Globulin Ratio 1.1 Urine Color Urine Turbidity Urine pH Ur Specific [place] Urine Protein Urine Glucose (UA) Urine Ketones Urine Blood Urine Nitrite Urine Bilirubin Urine Urobilinogen Ur Leukocyte Esterase Urine WBC (Auto) Urine RBC (Auto) U Epithel Cells (Auto) Urine Mucus 08/04/18 07:05 WBC RBC Hgb Hct MCV MCH MCHC RDW Plt Count Lymph # Add Manual Diff Total Counted Seg Neuts % (Manual) Band Neutrophils % Lymphocytes % (Manual) Reactive Lymphs % (Man) Monocytes % (Manual) Eosinophils % (Manual) Basophils % (Manual) Metamyelocytes % Myelocytes % Promyelocytes % Blast Cells % Nucleated RBC % Seg Neutrophils # Man Band Neutrophils # Lymphocytes # (Manual) Abs React Lymphs (Man) Monocytes # (Manual) Eosinophils # (Manual) Basophils # (Manual) Metamyelocytes # Myelocytes # Promyelocytes # Blast Cells # WBC Morphology Hypersegmented Neuts Hyposegmented Neuts Hypogranular Neuts Smudge Cells Toxic Granulation Toxic Vacuolation Dohle Bodies Pelger-Huet Anomaly Markus Rods Platelet Estimate Clumped Platelets Plt Clumps, EDTA Large Platelets Giant Platelets Platelet Satelliting Plt Morphology Comment RBC Morphology Dimorphic RBCs Polychromasia Hypochromasia Poikilocytosis Anisocytosis Microcytosis Macrocytosis Spherocytes Pappenheimer Bodies Sickle Cells Target Cells Tear Drop Cells Ovalocytes Helmet Cells Garza-[place] Bodies [place] Rings Barto Cells Bite Cells Crenated Cell Elliptocytes Acanthocytes (Spur) Rouleaux Hemoglobin C Crystals Schistocytes Malaria parasites Jaime Bodies Hem Pathologist Commnt PT INR APTT D-Dimer Sodium Potassium Chloride Carbon Dioxide Anion Gap BUN Creatinine Estimated GFR BUN/Creatinine Ratio Glucose POC Glucose Lactic Acid Calcium Total Bilirubin AST ALT Alkaline Phosphatase Troponin T Total Protein Albumin Albumin/Globulin Ratio Urine Color Straw Urine Turbidity Clear Urine pH 5.0 Ur Specific [place] 1.013 Urine Protein <15 mg/dl Urine Glucose (UA) Neg Urine Ketones Neg Urine Blood Neg Urine Nitrite Neg Urine Bilirubin Neg Urine Urobilinogen < 2.0 Ur Leukocyte Esterase Neg Urine WBC (Auto) 1.0 Urine RBC (Auto) 2.0 U Epithel Cells (Auto) 1.0 Urine Mucus Few - EKG Data EKG shows normal: sinus rhythm, QRS complexes Rate: normal - EKG Data 08/04/18 12:56 LAD, prolonged QT, no ST elevation, non specific ST-T changes - Radiology Data PROCEDURE: CT ABDOMEN PELVIS W CON TECHNIQUE: Enhanced axial images were obtained from the lower lung bases through the pelvis after the uneventful administration of IV contrast. Sagittal and coronal reformatted images were also obtained. HISTORY: LLQ abd pain COMPARISONS: 3230.86 FINDINGS: TECHNICAL QUALITY: Satisfactory. FINDINGS: Visualized lower thorax: No significant abnormality. Liver: Normal size and attenuation. Spleen: Normal size and attenuation. Gallbladder and biliary system: Normal. Pancreas: Normal. Adrenals: Normal. Kidneys: Normal. GI tract: Normal . Lymph nodes and mesentery: Normal. Vasculature: Normal.. Bladder: Normal. Reproductive organs: 4.9 x 3.6 cm cystic mass arising from the right ovary. Unremarkable CT appearance of the uterus and left adnexa. Peritoneum: No free fluid. Musculoskeletal structures: No significant abnormality. Other: None . IMPRESSION: 1. Normal appearance of the abdomen. 2. 4.9 x 3.6 cm cystic mass arising from the right ovary. Correlation with pelvic ultrasound recommended for further evaluation. . This document is electronically signed by Heavenly Barba MD., August 04 2018 10:12:58 AM ET PROCEDURE: US PELVIC COMPLETE, US TRANSVAGINAL TECHNIQUE: Transabdominal and transvaginal imaging of the pelvis was performed HISTORY: cystic mass seen on CT COMPARISONS: CT of the abdomen and pelvis performed on 08/04/2017 FINDINGS: The uterus measures 10.7 x 4.2 x 7 cm and is anteverted. There is normal echogenicity of the uterine myometrium. Endometrium measures 10.5 mm in thickness. The bilateral ovaries are not visualized, which may be due to body habitus and overlying bowel gas. IMPRESSION: Normal uterus and endometrium. The bilateral ovaries are not visualized due to body habitus and overlying bowel gas. This document is electronically signed by Melani Fung MD., August 04 2018 12:38:08 PM ET Transcribed By: APOLINAR Dictated By: MELANI FUNG MD Electronically Authenticated By: MELANI FUNG MD Signed Date/Time: 08/04/18 1240 PROCEDURE: US PELVIC COMPLETE, US TRANSVAGINAL TECHNIQUE: Transabdominal and transvaginal imaging of the pelvis was performed HISTORY: cystic mass seen on CT COMPARISONS: CT of the abdomen and pelvis performed on 08/04/2017 FINDINGS: The uterus measures 10.7 x 4.2 x 7 cm and is anteverted. There is normal echogenicity of the uterine myometrium. Endometrium measures 10.5 mm in thickness. The bilateral ovaries are not visualized, which may be due to body habitus and overlying bowel gas. IMPRESSION: Normal uterus and endometrium. The bilateral ovaries are not visualized due to body habitus and overlying bowel gas. This document is electronically signed by Melani Fung MD., August 04 2018 12:38:08 PM ET Transcribed By: APOLINAR Dictated By: MELANI FUNG MD Electronically Authenticated By: MELANI FUNG MD Signed Date/Time: 08/04/18 1240 - Medical Decision Making Pt presents to the ED with URI sx for the past few days. Pt is on medrol dose pack and tessalon pearls, and muscle relaxer. Pt c/o generalized body aches. Did not complain specifically of CP or abdominal pain. Had some mild LLQ TTP on exam, but not c/o abdominal pain. CT abd pelvis performed which was normal except for a cystic mass on the ovary which recommended US. US performed and not able to visualize the ovaries due to body habitus. Will have pt follow up with [facility]. UA and CXR were normal. WBC elevated at 19k, most likely believed to be due from medrol dose pack. Pt is not c/o MUJICA, vaginal discharge, vaginal bleeding or any other sx. Will give pt naproxen for body aches. Advised pt to be seen by her PCP in the next 2-3 days. Pt is non toxic appearing. VSS. Lactate is normal. D-dimer is normal. Case discussed with attending Dr. Waddell who agrees with discharge and plan. - Differential Diagnosis Influenza, Viral syndrome, URI Critical care attestation.: If time is entered above; I have spent that time in minutes in the direct care of this critically ill patient, excluding procedure time. ED Disposition Is pt being admited?: No Does the pt Need Aspirin: No Time of Disposition: 13:05
[2018-08-04] MEDS ORDERED: ASPIRIN PO ONE (02:22)
[2018-08-04 02:54] LABS: Hematocrit 29.2 % (30.3-42.9); Hemoglobin 9.1 gm/dl (10.1-14.3); Mean Corpuscular HGB Conc 31 % (30-34); Platelet Count 446 K/mm3 (140-440); Red Blood Count 4.71 M/mm3 (3.65-5.03)
[2018-08-04 03:01] LABS: Mean Corpuscular Volume 62 fl (79-97)
[2018-08-04 03:10] LABS: INR 0.88 (0.87-1.13)
[2018-08-04 04:56] LABS: Alanine Aminotransferase 12 units/L (7-56); Albumin 3.7 g/dL (3.9-5); BUN/Creatinine Ratio 28; Blood Urea Nitrogen 22 mg/dL (7-17); Calcium 8.3 mg/dL (8.4-10.2); Hemolysis Index 48
[2018-08-04 05:46] LABS: Basophils % (Manual) 0 % (0.0-1.8); Total Cells Counted 100
[2018-08-04 05:47] LABS: Hypochromasia 2+; Ovalocytes 1+; Platelet Estimate Consistent w Auto
[2018-08-04] MEDS ORDERED: IBUPROFEN ONE (05:52)
[2018-08-04] MEDS ORDERED: IBUPROFEN PO ONE (05:55)
[2018-08-04] MEDS ORDERED: NACL 0.9% 1000 ML 1,000 ML IV ONE (07:09)
[2018-08-04 08:16] LABS: Bilirubin,Urine NEG (Negative); Blood,Urine NEG (Negative); Color,Urine Straw (Yellow); Mucus,Urine FEW /HPF; Protein,Urine <15 mg/dL mg/dL (Negative); Urobilinogen,Urine < 2.0 mg/dL (<2.0)
--- NOTE | 2018-08-04 10:15 | Cat Scan Report ---
PROCEDURE: CT ABDOMEN PELVIS W CON TECHNIQUE: Enhanced axial images were obtained from the lower lung bases through the pelvis after th e uneventful administration of IV contrast. Sagittal and coronal reformatted images were also obtaine d. HISTORY: LLQ abd pain COMPARISONS: 3230.86 FINDINGS: TECHNICAL QUALITY: Satisfactory. FINDINGS: Visualized lower thorax: No significant abnormality. Liver: Normal size and attenuation. Spleen: Normal size and attenuation. Gallbladder and biliary system: Normal. Pancreas: Normal. Adrenals: Normal. Kidneys: Normal. GI tract: Normal . Lymph nodes and mesentery: Normal. Vasculature: Normal.. Bladder: Normal. Reproductive organs: 4.9 x 3.6 cm cystic mass arising from the right ovary. Unremarkable CT appearance of the uterus and left adnexa. Peritoneum: No free fluid. Musculoskeletal structures: No significant abnormality. Other: None . IMPRESSION: 1. Normal appearance of the abdomen. 2. 4.9 x 3.6 cm cystic mass arising from the right ovary. Correlation with pelvic ultrasound recommen ded for further evaluation. . This document is electronically signed by Heavenly Barba MD., August 04 2018 10:12:58 AM ET
--- NOTE | 2018-08-04 12:40 | Ultrasound Report ---
PROCEDURE: US PELVIC COMPLETE, US TRANSVAGINAL TECHNIQUE: Transabdominal and transvaginal imaging of the pelvis was performed HISTORY: cystic mass seen on CT COMPARISONS: CT of the abdomen and pelvis performed on 08/04/2017 FINDINGS: The uterus measures 10.7 x 4.2 x 7 cm and is anteverted. There is normal echogenicity of the uterine myometrium. Endometrium measures 10.5 mm in thickness. The bilateral ovaries are not visualized, which may be due to body habitus and overlying bowel gas. IMPRESSION: Normal uterus and endometrium. The bilateral ovaries are not visualized due to body habitus and overlying bowel gas. This document is electronically signed by Melani Tomas MD., August 04 2018 12:38:08 PM ET
[2018-08-04 13:23] VITALS: BP 107/60
== END 2018-08-04 13:23 | disposition home or self-care (01) ==
LOC: ED 23:29
DX: J06.9 Acute upper respiratory infection, unspecified (principal); D69.6 Thrombocytopenia, unspecified; N83.201 Unspecified ovarian cyst, right side; D72.829 Elevated white blood cell count, unspecified; I10 Essential (primary) hypertension; J45.909 Unspecified asthma, uncomplicated; E66.9 Obesity, unspecified; E11.9 Type 2 diabetes mellitus without complications; Z98.51 Tubal ligation status; Z91.018 Allergy to other foods
CPT/HCPCS: 36415; 71046; 74177; 76830; 76856; 80053; 81001; 82140; 82962; 84484; 85007; 85025; 85379; 85610; 85730; 93005; 93010; 96360; 99284; J7030; Q9967